=== PATIENT | male | born 2000 | race Caucasian/White ===

== ENCOUNTER 2021-07-20 14:23 | Emergency (ER) | payer OTHER ==
[2021-07-20] MEDS ORDERED: MOTRIN600 MG PO (17:31)
== END 2021-07-20 17:40 | disposition home or self-care (01) ==
LOC: FER 14:23
DX: S80.11XA Contusion of right lower leg, initial encounter (principal); W20.8XXA Other cause of strike by thrown, projected or falling object, initial encounter; Y93.89 Activity, other specified; Y92.89 Other specified places as the place of occurrence of the external cause; Y99.0 Civilian activity done for income or pay
CPT/HCPCS: 73552; 73560; 73610

== ENCOUNTER 2021-08-11 23:57 | Emergency (ER) | payer OTHER ==
[~2021-08-11 23:57] MED LIST: MOTRIN600 MG PO
[2021-08-12] MEDS ORDERED: EPIPEN 2-P0.3 MG/0.3 IM (01:44)
[2021-08-12] MEDS ORDERED: MEDROL 4MG DOSEP4 MG PO (01:44)
== END 2021-08-12 02:04 | disposition home or self-care (01) ==
LOC: FER 23:57
DX: T78.40XA Allergy, unspecified, initial encounter (principal)
CPT/HCPCS: 99282; J7512